=== PATIENT | female | born 1985 | race Caucasian/White ===

== ENCOUNTER 2017-01-27 09:04 | Inpatient (IN) | payer MEDICAID ==
[~2017-01-27] VITALS: Ht 160 cm; Wt 101.6 kg
[2017-01-27 09:06] VITALS: BP 113/72
--- NOTE | 2017-01-27 09:20 | NUR ---
31 F BIB SELF C/O 01/20 NON RADIATING LEFT EAR PAIN X 2 DAYS WITH SWELLING BEHIND EAR; NO DRAINAGE OR INJURY NOTED; PT DENIES TRAUMA TO EAR; PT IS AOX4; RR ARE EVEN AND UNLABORED; PT DENIES COUGH OR COLD SYMPTOMS; PATIENT REPORTS FEVER LAST NIGHT; AWAITING ER MD PRIMARY EVAL; ALL NEEDS MET AT THIS TIME; WILL CONTINUE TO MONITOR
--- NOTE | 2017-01-27 09:59 | NUR ---
pt to ct via wheelchair with anesthesia tech
[2017-01-27] MEDS ORDERED: oxyCODONE/APAP 5/325 MG 1 TAB TAB PO ONE (10:00)
[2017-01-27] MEDS ORDERED: KETOROLAC 60 MG/2 ML VIAL IM ONE (10:00)
--- NOTE | 2017-01-27 10:02 | NUR ---
pt returned from ct via wheelchair with plumbing service technician
--- NOTE | 2017-01-27 10:46 | NUR ---
Patient appears to be resting comfortably in bed. Vital Signs within normal limits. Respirations even and unlabored.
[2017-01-27] MEDS ORDERED: CETI10SG1 PO (11:18)
[2017-01-27] MEDS ORDERED: MONT10TA35 PO (11:18)
[2017-01-27] MEDS ORDERED: FLUT0.0571 NS (11:18)
[2017-01-27] MEDS ORDERED: ACETAMINOPHEN 325 MG TAB PO PRN (11:25)
[2017-01-27] MEDS ORDERED: MORPHINE SULFATE 2 MG/ML SYR IVP PRN (11:25)
[2017-01-27] MEDS ORDERED: DOCUSATE SODIUM 100 MG GELCAP PO PRN (11:25)
[2017-01-27] MEDS ORDERED: ONDANSETRON 4 MG/2 ML VIAL IM/IVP PRN (11:25)
[2017-01-27] MEDS ORDERED: cefTRIAXone 1,000 MG VIAL ONE (11:35)
--- NOTE | 2017-01-27 11:37 | NUR ---
LAB BY BEDSIDE
[2017-01-27 11:48] LABS: BASOPHILS # (AUTO) 0.4 K/uL (0.00-0.22); BASOPHILS % (AUTO) 4.1 % (0.0-2.0); EOSINOPHILS # (AUTO) 0.1 K/uL (0-0.4); EOSINOPHILS % (AUTO) 0.8 % (0.0-4.0); HEMATOCRIT 37.3 % (36-48); HEMOGLOBIN 11.8 g/dL (12.0-16.0); LYMPHOCYTES # (AUTO) 2.3 K/uL (2.5-16.5); LYMPHOCYTES % (AUTO) 25.3 % (20.5-51.1); MEAN CORPUSCULAR HEMOGLOBIN 28 pg (27-31); MEAN CORPUSCULAR HGB CONC 32 g/dL (33-37); MEAN CORPUSCULAR VOLUME 90 fL (80-94); MONOCYTES # (AUTO) 0.4 K/uL (0.8-1.0); MONOCYTES % (AUTO) 4.3 % (1.7-9.3); NEUTROPHILS % (AUTO) 65.5 % (42.2-75.2); PLATELET COUNT (AUTO) 371 K/uL (140-450); RED BLOOD CELL COUNT(AUTO) 4.15 MIL/uL (4.20-5.40); RED CELL DISTRIBUTION WIDTH 13.1 % (11.6-13.7); WHITE BLOOD COUNT (AUTO) 9.2 K/uL (4.8-10.8)
--- NOTE | 2017-01-27 11:57 | NUR ---
Patient will be admitted to care of Deny LEGGETT. Admited to TEle. Will go to room 120B. Belongings list completed. Report to Bakari GOOD.
[2017-01-27 12:00] VITALS: BP 114/67
--- NOTE | 2017-01-27 12:00 | NUR ---
PT ARRIVED FROM ER VIA GURNEY, PT AAOX4, ON RA, IV RAC 20 G PATENT AND INTACT, SKIN IN TACT, LEFT EAR AND MANDIBLE SWOLLEN, INITIAL ASSESSMENT COMPLETED AT BEDSIDE WITH PRECEPTOR, ALL SAFETY PRECAUTIONS MET, CALL LIGHT WITHIN REACH, REVIEWED PLAN OF CARE WITH JAMIE LARRY.
[2017-01-27 12:15] LABS: ALBUMIN 3.2 g/dL (3.4-5.0); ANION GAP 11.1 (8-16); CALCIUM 8.7 mg/dL (8.5-10.1); CARBON DIOXIDE 26.8 mmol/L (21-32); CREATININE 0.7 mg/dL (0.6-1.3); POTASSIUM 3.9 mmol/L (3.5-5.1); TOTAL BILIRUBIN 0.4 mg/dL (0.0-1.0); TOTAL PROTEIN, SERUM 7.3 g/dL (6.4-8.2)
[2017-01-27 12:18] LABS: LACTIC ACID 0.6 mmol/L (0.4-2.0)
[2017-01-27 12:25] LABS: MAGNESIUM 1.9 mg/dL (1.8-2.4); PHOSPHORUS 3.5 mg/dL (2.5-4.9); THYROID STIMULATING HORMONE 2.01 uIU/mL (0.34-3.74)
--- NOTE | 2017-01-27 12:30 | NUR ---
KEEP COMFORTABLE ON BED. EXPLAINED DIAGNOSIS, PLAN OF CARE, PAIN MANAGEMENT TEACHING, USE OF CALL LIGHT/BED/TV/BATHROOM. VERBALIZED UNDERSTANDING. CALL LIGHT WITHIN REACH.
[2017-01-27 12:34] LABS: INR 1.1 (0.8-1.2); PARTIAL THROMBOPLASTIN TIME 27.6 secs (22-35.6); PROTHROMBIN TIME 10.8 secs (10.8-13.4)
[2017-01-27] MEDS: NACL 0.9% 1,000 ML IV SCH ×2 (12:36→20:34)
[2017-01-27 12:43] LABS: FREE T4 (FREE THYROXINE) 0.94 ng/dL (0.76-1.46)
[2017-01-27] MEDS ORDERED: CETIRIZINE HCL 10 MG PO PRN (13:40)
[2017-01-27] MEDS ORDERED: [UNRECOGNIZED DRUG - REMARK] NS PRN (13:40)
[2017-01-27] MEDS: HYDROcodone/APAP 7.5/325 MG 1 TAB PO PRN ×2 (15:15→21:14)
[2017-01-27 16:00] VITALS: BP 127/76
--- NOTE | 2017-01-27 16:45 | NUR ---
SEEN WATCHING TV. NO DISCOMFORT NOTED. ASKED TO CALL NURSE IF NEEDS HELP. CALL LIGHT WITHIN REACH.
[2017-01-27] MEDS ORDERED: PNEUMOCOCCAL VACCINE 23 MCG/0.5 ML VIAL IMVAC SCH (17:00)
[2017-01-27] MEDS: cefTRIAXone 2,000 MG in DEXTROSE 5% 100 ML IV SCH (17:21)
--- NOTE | 2017-01-27 19:12 | NUR ---
BEDSIDE REPORT GIVEN TO ALIA CENTENO -FLORENTINO. IVF INFUSING WELL. IN STABLE CONDITION.
--- NOTE | 2017-01-27 19:15 | NUR ---
RECEIVED PT AWAKE, VITAL SIGNS STABLE, DENIES ANY PAIN, LT EAR AREA SWOLLEN, SLIGHTLY TENDER TO TOUCH, TOLERATING REGULAR DIET, IVF INFUSING WELL, PLAN OF CARE DISCUSS, CALL LIGHT WITHIN REACH.
[2017-01-27 20:00] VITALS: BP 123/76
--- NOTE | 2017-01-27 21:15 | NUR ---
MEDICATED PRN FOR PAIN, ICE PACK PROVIDED PER REQUEST AND PUT ON LEFT EAR AREA, MONITORED CLOSELY.
--- NOTE | 2017-01-27 22:20 | NUR ---
ROUNDED ON PT, SLEEPING, NO SIGNS OF DISTRESS, MONITORED CLOSELY.
[2017-01-28] VITALS: BP 126/79
--- NOTE | 2017-01-28 | NUR ---
PT SLEEPING, EASILY AROUSABLE, VITAL SIGNS STABLE, DENIES ANY PAIN, IVF INFUSING WELL, CONTINUE TO MONITOR CLOSELY.
[2017-01-28] MEDS: HYDROcodone/APAP 7.5/325 MG 1 TAB PO PRN ×3 (03:59→20:19)
[2017-01-28 04:00] VITALS: BP 120/79
--- NOTE | 2017-01-28 04:00 | NUR ---
PT AWAKE, COMPLAINING OF LEFT EAR PAIN, VITAL SIGNS STABLE, MEDICATED PRN WITH NORCO, MONITORED CLOSELY.
[2017-01-28] MEDS: NACL 0.9% 1,000 ML IV SCH ×4 (04:05→22:59)
[2017-01-28 05:36] LABS: BASOPHILS # (AUTO) 0.3 K/uL (0.00-0.22); BASOPHILS % (AUTO) 3.8 % (0.0-2.0); EOSINOPHILS # (AUTO) 0.2 K/uL (0-0.4); EOSINOPHILS % (AUTO) 2.7 % (0.0-4.0); HEMATOCRIT 32.5 % (36-48); HEMOGLOBIN 10.9 g/dL (12.0-16.0); LYMPHOCYTES # (AUTO) 2.4 K/uL (2.5-16.5); LYMPHOCYTES % (AUTO) 29.6 % (20.5-51.1); MEAN CORPUSCULAR HEMOGLOBIN 30 pg (27-31); MEAN CORPUSCULAR HGB CONC 34 g/dL (33-37); MEAN CORPUSCULAR VOLUME 90 fL (80-94); MONOCYTES # (AUTO) 0.4 K/uL (0.8-1.0); MONOCYTES % (AUTO) 5.3 % (1.7-9.3); NEUTROPHILS # (AUTO) 4.8 K/uL (1.8-7.7); NEUTROPHILS % (AUTO) 58.6 % (42.2-75.2); PLATELET COUNT (AUTO) 311 K/uL (140-450); RED BLOOD CELL COUNT(AUTO) 3.62 MIL/uL (4.20-5.40); RED CELL DISTRIBUTION WIDTH 12.9 % (11.6-13.7); WHITE BLOOD COUNT (AUTO) 8.1 K/uL (4.8-10.8)
[2017-01-28 05:52] LABS: ANION GAP 11.6 (8-16); CALCIUM 7.6 mg/dL (8.5-10.1); CARBON DIOXIDE 24.4 mmol/L (21-32); CREATININE 0.7 mg/dL (0.6-1.3)
[2017-01-28 05:58] LABS: MAGNESIUM 1.7 mg/dL (1.8-2.4); PHOSPHORUS 3.4 mg/dL (2.5-4.9)
[2017-01-28] MEDS: cefTRIAXone 2,000 MG in DEXTROSE 5% 100 ML IV SCH ×2 (06:11→17:56)
--- NOTE | 2017-01-28 06:15 | NUR ---
PT SLEEPING, NO SIGNS OF DISTRESS, DUE IV ANTIBIOTIC ADMINISTERED.
--- NOTE | 2017-01-28 07:30 | NUR ---
PT SLEEPING, NO SIGNS OF DISTRESS, REPORT GIVEN TO FLORENTINO KHALIL FOR CONTINUITY OF CARE.
--- NOTE | 2017-01-28 07:31 | NUR ---
RECEIVED REPORT, ASSUMED CARE. PT SLEEPING AT THIS TIME, EASY TO AROUSED. NO S/S OF RESPIRATORY DISTRESS AT THIS TIME. IV ACCESS TO RIGHT AC GAUGE 20. INFUSING NS AT 140ML/HR. NO S/S OF INFILTRATION AT THIS TIME. ALL NEEDS ANTICIPATED. CALL LIGHT WITHIN EASY REACH. WILL CONTINUE TO MONITOR.
[2017-01-28 08:00] VITALS: BP 139/80
[2017-01-28 08:22] LABS: HEMOGLOBIN A1C 5.4 % (4.8-5.6); T4 (THYROXINE) 6.5 ug/dL (4.5-12.0)
[2017-01-28] MEDS: MONTELUKAST SODIUM 10 MG TAB PO SCH (08:52)
[2017-01-28] MEDS ORDERED: MAGNESIUM OXIDE 400 MG TAB PO SCH (09:12)
--- NOTE | 2017-01-28 09:41 | NUR ---
ALL AM MEDS ADMINISTERED ALONG WITH THE NEW ORDER MAG OX 4OOMG DUE TO LOW MAG LEVEL 1.7L. PT COMPLIANT AND TOLERATED WELL. WILL CONTINUE TO MONITOR. PT REQUESTS TO SPEAK TO DR. MCGILL PERSONALLY. MADE AWARE, HE STATES HE'S GOING TO SEE THE PATIENT IN A MOMENT.
--- NOTE | 2017-01-28 11:18 | NUR ---
PATIENT HAS BEEN SCREENED AND CATEGORIZED MODERATE NUTRITION RISK. PATIENT WILL BE SEEN WITHIN 3-5 DAYS OF ADMISSION. 01/30/17-02/01/[address] Addendum: 01/28/17 at [address] Error, please disregard Shirley Orell[address] RD
--- NOTE | 2017-01-28 11:19 | NUR ---
PATIENT HAS BEEN SCREENED AND CATEGORIZED LOW NUTRITION RISK. PATIENT WILL BE SEEN WITHIN 7 DAYS OF ADMISSION. 02/02/[address]
[2017-01-28 12:00] VITALS: BP 139/80
--- NOTE | 2017-01-28 12:37 | NUR ---
CM NOTE PER SORAIDA Hackett COVERING FOR TOUR BUS DRIVER SALVADOR, REVIEWS SHOULD BE FAXED TO [facility] FAX# [phone] FAXED INITIAL REVIEW TO [facility] FAX# [phone] , TRACKING# [id number]
[2017-01-28] MEDS ORDERED: LACTOBACILLUS RHAMNOSUS GG 1 EACH CAP PO SCH (12:45)
--- NOTE | 2017-01-28 13:00 | NUR ---
PT SLEEPING AT THIS TIME EASY TO AROUSED. RESPIRATION EVEN AND UNLABORED,NO SOB, NO S/S OF RESPIRATORY DISTRESS. DENIES PAIN AT THIS TIME. WILL CONTINUE TO MONITOR. CALL LIGHT PLACED WITHIN EASY REACH.
--- NOTE | 2017-01-28 14:10 | NUR ---
PT AWAKE AND VERBALLY RESPONSIVE. RESPIRATION EVEN AND UNLABORED. DENIES PAIN OR DISCOMFORT AT THIS TIME. WILL CONTINUE TO MONITOR. CALL LIGHT PLACED WITHIN EASY REACH.
[2017-01-28] MEDS: PNEUMOCOCCAL VACCINE 23 MCG/0.5 ML VIAL IMVAC SCH (14:37)
[2017-01-28 16:00] VITALS: BP 131/77
--- NOTE | 2017-01-28 19:25 | NUR ---
PT AWAKE AND VERBALLY RESPONSIVE. NO S/S OF RESPIRATORY DISTRESS. DENIES PAIN AT THIS TIME. NO ACUTE CHANGES NOTED. LEFT EAR STILL NOTED TENDER TO TOUCH. ENDORSED TO NEXT SHIFT FOR CONTINUITY OF CARE. PT IN STABLE CONDITION.
--- NOTE | 2017-01-28 19:30 | NUR ---
RECEIVED REPORTS FROM DAY RN. PATIENT RESTING IN BED, AWAKE, ALERT, ORIENTED X4, NO S/S OF ACUTE DISTRESS NOTED, RESPIRATION EVEN AND UNLABORED. IV PATENT AND INTACT, INFUSING NS AT 140ML/HR. PLAN OF CARE DISCUSSED, PATIENT VERBALIZED UNDERSTANDING, CALL LIGHT WITHIN REACH, SAFETY MEASURE ENSURED, WILL CONTINUE TO MONITOR.
--- NOTE | 2017-01-28 20:20 | NUR ---
PATIENT STATED PAIN 5/10, PAIN MEDICATION GIVEN ORDERED. OFFERED WATER REQUESTED. CALL LIGHT WITHIN REACH, SAFETY MEASURE ENSURED, ALL NEEDS ATTENDED, WILL CONTINUE TO MONITOR.
[2017-01-29] VITALS: BP 120/78
--- NOTE | 2017-01-29 00:10 | NUR ---
PATIENT SLEEPING IN BED, NO S/S OF ACUTE DISTRESS NOTED, RESPIRATION EVEN AND UNLABORED, EASY TO AROUSE. VITAL SIGNS TAKEN, WITHIN NORMAL RANGE. CALL LIGHT WITHIN REACH, SAFETY MEASURE ENSURED, WILL CONTINUE TO MONITOR.
--- NOTE | 2017-01-29 02:39 | NUR ---
MADE ROUNDS, PATIENT SLEEPING IN BED, NO S/S OF ACUTE DISTRESS NOTED, RESPIRATION EVEN AND UNLABORED, CALL LIGHT WITHIN REACH, SAFETY MEASURE ENSURED, WILL CONTINUE TO MONITOR.
--- NOTE | 2017-01-29 04:59 | NUR ---
PATIENT SLEEPING IN BED, NO S/S OF ACUTE DISTRESS NOTED, RESPIRATION EVEN AND UNLABORED, CALL LIGHT WITHIN REACH, SAFETY MEASURE ENSURED, WILL CONTINUE TO MONITOR.
[2017-01-29] MEDS: cefTRIAXone 2,000 MG in DEXTROSE 5% 100 ML IV SCH (05:30)
--- NOTE | 2017-01-29 05:35 | NUR ---
ROCEPHIN STARTED. PATIENT TOLERATED WELL. WILL CONTINUE TO MONITOR.
[2017-01-29] MEDS: NACL 0.9% 1,000 ML IV SCH (06:16)
--- NOTE | 2017-01-29 07:20 | NUR ---
ENDORSED PLAN OF CARE TO DAY RN. PATIENT RESTING IN BED IN STABLE CONDITION, RESPIRATION EVEN AND UNLABORED. NO S/S OF ACUTE DISTRESS NOTED.
--- NOTE | 2017-01-29 07:20 | NUR ---
RECEIVED REPORT FROM NIGHT NURSE, PT IS AAOX4, ON ROOM AIR, SKIN INTACT,IV TO RIGHT AC 20G INFUSING WELL, INITIAL ASSESSMENT COMPLETED, REVIEWED PLAN OF CARE WITH PT, PT VERBALIZED UNDERSTANDING, ALL SAFETY PRECAUTIONS MET, CALL LIGHT WITHIN REACH. WILL CONTINUE TO MONITOR.
[2017-01-29 07:31] LABS: BASOPHILS # (AUTO) 0.3 K/uL (0.00-0.22); BASOPHILS % (AUTO) 4.3 % (0.0-2.0); EOSINOPHILS # (AUTO) 0.1 K/uL (0-0.4); EOSINOPHILS % (AUTO) 1.3 % (0.0-4.0); HEMATOCRIT 35.1 % (36-48); HEMOGLOBIN 11.8 g/dL (12.0-16.0); LYMPHOCYTES # (AUTO) 2.5 K/uL (2.5-16.5); LYMPHOCYTES % (AUTO) 32.6 % (20.5-51.1); MEAN CORPUSCULAR HEMOGLOBIN 31 pg (27-31); MEAN CORPUSCULAR HGB CONC 34 g/dL (33-37); MEAN CORPUSCULAR VOLUME 91 fL (80-94); MONOCYTES # (AUTO) 0.4 K/uL (0.8-1.0); MONOCYTES % (AUTO) 5.1 % (1.7-9.3); NEUTROPHILS # (AUTO) 4.5 K/uL (1.8-7.7); NEUTROPHILS % (AUTO) 56.7 % (42.2-75.2); PLATELET COUNT (AUTO) 344 K/uL (140-450); RED BLOOD CELL COUNT(AUTO) 3.87 MIL/uL (4.20-5.40); RED CELL DISTRIBUTION WIDTH 13.1 % (11.6-13.7); WHITE BLOOD COUNT (AUTO) 7.8 K/uL (4.8-10.8)
[2017-01-29 07:51] LABS: ANION GAP 9.5 (8-16); CALCIUM 8.6 mg/dL (8.5-10.1); CARBON DIOXIDE 27.5 mmol/L (21-32); CREATININE 0.7 mg/dL (0.6-1.3)
[2017-01-29 07:58] LABS: MAGNESIUM 1.9 mg/dL (1.8-2.4); PHOSPHORUS 4.1 mg/dL (2.5-4.9)
[2017-01-29 08:00] VITALS: BP 117/85
[2017-01-29] MEDS: PNEUMOCOCCAL VACCINE 23 MCG/0.5 ML VIAL IMVAC SCH (08:18)
[2017-01-29] MEDS: MONTELUKAST SODIUM 10 MG TAB PO SCH (08:56)
--- NOTE | 2017-01-29 08:56 | NUR ---
DUE MEDICATIONS GIVEN, PT TOLERATED WELL,PT CURRENTLY WATCHING TV NO S/S OF DISTRESS NOTED. ALL NEEDS MET. WILL CONTINUE TO MONITOR.
[2017-01-29] MEDS ORDERED: LACTOBACILLUS RHAMNOSUS GG 1 EACH CAP PO SCH (09:00)
[2017-01-29] MEDS: HYDROcodone/APAP 7.5/325 MG 1 TAB PO PRN (09:02)
[2017-01-29] MEDS ORDERED: AMOX-999 PO (09:16)
--- NOTE | 2017-01-29 10:09 | NUR ---
DISCUSSED DISCHARGE PLAN WITH PT, PT VERBALIZED UNDERSTAND.
--- NOTE | 2017-01-29 10:20 | NUR ---
PT SIGNED ALL DISCHARGE PAPERWORK, DISCHARGE EDUCATION GIVEN, PRESCRIPTION INFORMATION GIVEN, ALL PERSONAL BELONGINGS WITH PT, IV REMOVED TIP INTACT, ID BANDS REMOVED.
--- NOTE | 2017-01-29 10:26 | NUR ---
PT WAS WALKED OUT TO FRONT LOBBY IN STABLE CONDITION.
== END 2017-01-29 10:25 | disposition home or self-care (01) | DRG 113 ==
LOC: MED 09:04 → MTU 11:33
PROVIDERS: ADMIT Family Medicine; ATTEND Family Medicine
DX: H70.92 Unspecified mastoiditis, left ear (principal); E44.0 Moderate protein-calorie malnutrition; J45.909 Unspecified asthma, uncomplicated; E83.42 Hypomagnesemia; Z88.8 Allergy status to other drugs, medicaments and biological substances; Z68.39 Body mass index [BMI] 39.0-39.9, adult; Z79.899 Other long term (current) drug therapy
CPT/HCPCS: 36415; 70486; 80048; 80053; 82150; 83036; 83605; 83690; 83735; 83880; 84100; 84436; 84439; 84443; 84479; 85025; 85610; 85730; 87040; 87081; 90732; 93005; 96372; 99291; J0696; J1885; J7030; J7060; Q0163